=== PATIENT | female | born 1995 | race American Indian/Alaskan Native ===

== ENCOUNTER 2020-02-18 11:00 | Outpatient (CLI) | payer BC, OTHER ==
[2020-02-18 11:48] VITALS: BP 128/64
== END 2020-02-18 12:22 | disposition home or self-care (01) ==
LOC: TRG 11:00 → APU 11:02 → TRG 12:22
PROVIDERS: ATTEND Obstetrics & Gynecology
DX: O26.893 Other specified pregnancy related conditions, third trimester (principal); R20.0 Anesthesia of skin; Z3A.37 37 weeks gestation of pregnancy
CPT/HCPCS: 59025

== ENCOUNTER 2020-03-01 18:12 | Outpatient (CLI) | payer BC, OTHER ==
[2020-03-01 18:32] VITALS: BP 131/76
[2020-03-01] MEDS ORDERED: LACTATED RINGERS 1,000 ML ONE (19:07)
[2020-03-01] MEDS ORDERED: D5W/LACTATED RINGERS 1,000 ML IV SCH (20:00)
== END 2020-03-01 21:50 | disposition home or self-care (01) ==
LOC: TRG 18:12 → APU 18:13 → TRG 21:50
PROVIDERS: ATTEND Obstetrics & Gynecology
DX: O36.8130 Decreased fetal movements, third trimester, not applicable or unspecified (principal); O47.1 False labor at or after 37 completed weeks of gestation; Z3A.39 39 weeks gestation of pregnancy; Z87.891 Personal history of nicotine dependence
CPT/HCPCS: 99212; G0463; J7120; J7121

== ENCOUNTER 2020-03-02 01:04 | Inpatient (IN) | payer BC, OTHER, MEDICAID ==
[2020-03-02] MEDS ORDERED: LACTATED RINGERS 1,000 ML ONE (01:46)
[2020-03-02] MEDS ORDERED: ePHEDrine SULFATE 50 MG/1 ML INJ IV PRN ×2 (03:27→08:51)
[2020-03-02] MEDS ORDERED: LIDOCAINE (2%) 20 MG/1 ML VIAL 20 ML MDV INFILTRATI ONE (03:27)
[2020-03-02] MEDS ORDERED: MINERAL OIL 30 ML ORAL LIQD PO PRN (03:27)
[2020-03-02] MEDS ORDERED: BUTORPHANOL 2 MG/1 ML INJ IV PRN (03:27)
[2020-03-02] MEDS ORDERED: fentaNYL 100 MCG/2 ML INJ IV PRN (03:27)
[2020-03-02] MEDS ORDERED: TERBUTALINE 1 MG/1 ML INJ IVP PRN (03:27)
[2020-03-02] MEDS ORDERED: TERBUTALINE 1 MG/1 ML INJ SUB-Q PRN (03:27)
[2020-03-02] MEDS ORDERED: OXYTOCIN 20 UNIT/1000ML DRIP 20 UNITS/1,000 ML BAG IV SCH ×2 (04:00→17:00)
[2020-03-02] MEDS ORDERED: LACTATED RINGERS 1,000 ML IV SCH (04:00)
--- NOTE | 2020-03-02 05:23 | History and Physical Report ---
History of Present Illness Date of examination: 03/02/20 Date of admission: 03/02/20 03:27 Chief complaint: I'm in pain History of present illness: Pt is a 24 year old who presents for active labor at term and had cervical change from 1-3 prior to admission. records are available for review, but are incomplete. Her first visit with [facility] was at 33 weeks. Will treat for positive GBS. Per patient she has had no complications with this . Anticipate . Past History Past Medical History: no pertinent history Past Surgical History: no surgical history Social history: single - Obstetrical History Expected Date of Delivery: 03/07/20 Actual Gestation: 39 Week(s) 2 Day(s) : 2 Number of Living Children: 0 Medications and Allergies Allergies Allergy/AdvReac Type Severity Reaction Status Date / Time amoxicillin Allergy Rash Verified 06/06/15 15:38 Home Medications Medication Instructions Recorded Confirmed Last Taken Type Acetaminophen/Codeine [Tylenol #3] 1 tab PO Q6H PRN #14 tab 06/06/15 03/02/20 Unknown Rx Ondansetron [Zofran Odt] 4 mg PO Q6H #14 tab.rapdis 06/06/15 03/02/20 Unknown Rx Phenazopyridine [Pyridium] 200 mg PO BID #10 tab 06/06/15 03/02/20 Unknown Rx Sulfamethoxazole/Trimethoprim 1 each PO BID #14 tablet 06/06/15 03/02/20 Unknown Rx [Bactrim DS TAB] Active Meds: Active Medications Butorphanol Tartrate (Stadol) 1 mg IV Q2H PRN PRN Reason: Pain, Moderate(4-6) LABOR PAIN Ephedrine Sulfate (Ephedrine Sulfate) 10 mg IV Q2M PRN PRN Reason: Hypotension Fentanyl (Sublimaze) 100 mcg IV Q2H PRN PRN Reason: Pain,Severe (7-10) LABOR PAIN Oxytocin/Sodium Chloride (Pitocin/Ns 20 Unit/1000ml Drip) 20 units in 1,000 mls @ 125 mls/hr IV DIRECT SUKHJINDER Lactated Ringer's (Lactated Ringers) 1,000 mls @ 125 mls/hr IV DIRECT SUKHJINDER Vancomycin HCl (Vancomycin/Ns 1 Gm/250 Ml) 1 gm in 250 mls @ 167.007 mls/hr IV Q12H SUKHJINDER; Protocol Mineral Oil (Mineral Oil) 30 ml PO QHS PRN PRN Reason: Constipation Terbutaline Sulfate (Brethine) 0.25 mg SUB-Q ONCE PRN PRN Reason: Hyperstimulation/Hypertonicity Terbutaline Sulfate (Brethine) 0.25 mg IVP ONCE PRN PRN Reason: Hyperstimulation/Hypertonicity Review of Systems All systems: negative Genitourinary: pelvic pain, contractions - Vital Signs Vital signs: Vital Signs Pulse BP 104 H 126/69 03/02/20 01:08 03/02/20 01:08 Temp Pulse Resp BP Pulse Ox 104 H 126/69 03/02/20 01:08 03/02/20 01:08 - Physical Exam Breasts: Cardiovascular: Regular rate, Normal S1, Normal S2 Lungs: Positive: Clear to auscultation, Normal air movement Abdomen: Positive: normal appearance, soft, normal bowel sounds. Negative: distention, tenderness Genitourinary (Female): Positive: normal external genitalia, normal perenium Vulva: both: normal Vagina: Positive: normal moisture. Negative: discharge Cervix: Negative: lesion, discharge Uterus: Positive: enlarged (markedly ), normal contour Adnexa: both: normal Anus/Rectum: Positive: normal perianal skin, heme negative. Negative: rectal mass, hemorrhoids Extremities: Deep Tendon Reflex Grade: Normal +2 - Obstetrical FHR: auscultation normal Cervical Dilatation: 3 Cervical Effacement Percentage: 60 station: -2 Uterine Contraction Pattern: Regular Uterine Tone Measurement Phase: Contraction Uterine Contraction Intensity: Moderate Results Result Diagrams: 03/02/20 07:18 All other labs normal. Assessment and Plan IUP at 39 weeks in labor. Admit to L&D. AROM when able. Treat for GBS. Anticipate .
[2020-03-02] MEDS: VANCOMYCIN/NS 1 GM/250 ML 1 GM/250 ML BAG IV SCH ×2 (05:45→17:19)
[2020-03-02 07:50] LABS: Hematocrit 34.6 % (30.3-42.9); Hemoglobin 11.5 gm/dl (10.1-14.3); Mean Corpuscular HGB Conc 33 % (30-34); Mean Corpuscular Volume 85 fl (79-97); Platelet Count 261 K/mm3 (140-440); Red Blood Count 4.09 M/mm3 (3.65-5.03)
[2020-03-02] MEDS ORDERED: DEXMEDETOMIDINE 200 MCG/2 ML VIAL IV ONE ×2 (08:24→10:49)
[2020-03-02] MEDS ORDERED: NALOXONE 2 MG/2 ML INJ IV PRN (08:51)
--- NOTE | 2020-03-02 08:53 | Anesthesia Consultation ---
Anesthesia Consult and Med Hx Date of service: 03/02/20 - Airway Anesthetic Teeth Evaluation: Good ROM Head & Neck: Adequate Mental/Hyoid Distance: Adequate Mallampati Class: Class II Intubation Access Assessment: Good - Pulmonary Exam CTA: Yes - Cardiac Exam Cardiac Exam: RRR - Pre-Operative Health Status ASA Pre-Surgery Classification: ASA2, Emergency Proposed Anesthetic Plan: Epidural - Pulmonary Hx Asthma: No COPD: No Hx Pneumonia: No - Cardiovascular System Hx Hypertension: No - Central Nervous System Hx Seizures: No Hx Psychiatric Problems: No - Endocrine Hx Renal Disease: No Hx End Stage Renal Disease: No Hx Hypothyroidism: No Hx Hyperthyroidism: No - Hematic Hx Anemia: No Hx Sickle Cell Disease: No - Other Systems Hx Alcohol Use: Yes (NOT DURING )
--- NOTE | 2020-03-02 08:58 | Progress Note ---
Labor Epidural - Labor Epidural Start Time: 08:27 Stop Time: 08:39 Performed by:: VALENTINE COSTA Procedure: Patient is requesting a laboring epidural for laboring pain. Patient IDed, H&P reviewed, all questions and concerns were answered, and consent was signed. Timeout was performed at bedside. Patient in sitting position. Sterile prep and drape was performed. 3 ml of 1% lidocaine skin wheal at L[3]- L [4]. 18- gauge Touhy epidural needle was advanced to loss of resistance with air technique. Negative CSF negative blood. Epidural catheter advanced to [15] centimeters. [-] Aspiration [-] test dose. Sterile dressing applied. Patient tolerated procedure.
[2020-03-02] MEDS ORDERED: fentaNYL-BUPIV 2 MCG/ML-0.125% 200 MCG/100 ML BAG EPIDURAL SCH (09:00)
[2020-03-02] MEDS ORDERED: ACETAMINOPHEN 325 MG TAB PO ONE (13:00)
[2020-03-02] MEDS ORDERED: METOCLOPRAMIDE 10 MG/2 ML INJ ONE (13:50)
[2020-03-02] MEDS ORDERED: BICITRA ORAL LIQD 30ML ONE (13:50)
[2020-03-02] MEDS ORDERED: FAMOTIDINE 20 MG/2 ML INJ IV ONE ×2 (13:50→14:07)
[2020-03-02] MEDS ORDERED: BICITRA ORAL LIQD 30ML PO ONE (14:07)
[2020-03-02] MEDS ORDERED: METOCLOPRAMIDE 10 MG/2 ML INJ IV ONE (14:07)
--- NOTE | 2020-03-02 14:43 | Anesthesia Day of Surgery ---
Anesthesia Day of Surgery - Day of Surgery Patient Examined: Yes Patient H&P Reviewed: Yes Patient is NPO: Yes
[2020-03-02] MEDS ORDERED: LIDOCAINE 2%/EPINEPHRINE 1:200,000 VIAL (20 ML) INFILTRATI ONE (14:46)
[2020-03-02] MEDS ORDERED: diphenhydrAMINE 50 MG/ML VIAL ONE (15:00)
[2020-03-02] MEDS ORDERED: KETOROLAC 30 MG/1 ML INJ ONE (15:00)
[2020-03-02] MEDS ORDERED: dexAMETHasone 20 MG/5 ML VIAL ONE (15:00)
--- NOTE | 2020-03-02 15:00 | Event Note ---
Date: 03/02/20 Received call from nurse at 12:10 stating that patient had fever to 101 with membranes intact that spiked after receiving Vancomycin. Pt also complains of cough that is new in onset. Received second call from nurse that patient was having repetitive late decelerations in addition to increase in Temp to 102.3 Fetus now with tachycardia and late decelerations. Pt is 4 cm and remote from delivery. Intrauterine resuscitation attempted with no relief. Will now proceed with urgent for non reassuring fhts. In addition, will consult ID and change patient status to PUI due to fever of unknown origin and cough at term with no other obvious causes.
[2020-03-02] MEDS ORDERED: ONDANSETRON 4 MG/2 ML INJ ONE (15:04)
[2020-03-02] MEDS ORDERED: PHENYLEPHRINE/NS 1,000 MCG/10 ML SYRINGE (OR USE) IV ONE (15:04)
[2020-03-02] MEDS ORDERED: SODIUM CHLORIDE 0.9% IRR 1,500 ML BOTTLE IR ONE (15:30)
[2020-03-02] MEDS ORDERED: WATER FOR IRRIG STERILE 1,500 ML BOTTLE IR ONE (15:30)
--- NOTE | 2020-03-02 16:26 | Procedure Note ---
OB Delivery Note - Delivery Date of Delivery: 03/02/20 Surgeon: TARUN ARCHIBALD Estimated blood loss: 500cc - Section Preop diagnosis: nonreassuring FHR tracing Postop diagnosis: other (chorioamnionitis, meconium fluid) section procedure: primary low transverse Disposition: PACU Complications: none Narrative: see op report - A at 1 minute: 8 at 5 minutes: 9 Infant Gender: Female (3755 g 8pounds 5 ounces)
[2020-03-02] MEDS ORDERED: ONDANSETRON 4 MG/2 ML INJ IV PRN ×2 (16:32→16:55)
[2020-03-02] MEDS ORDERED: HYDROmorphone 1 MG/1 ML INJ IV PRN (16:32)
[2020-03-02] MEDS ORDERED: NALOXONE 0.4 MG/1 ML INJ IV PRN ×2 (16:32→16:55)
--- NOTE | 2020-03-02 16:32 | Post Anesthesia Evaluation ---
- Post Anesthesia Evaluation Patient Participated: Yes Airway Patent: Yes Stable Respiratory Function: Yes Nausea/Vomiting: No Temp > 96.8F: Yes Pain Manageable: Yes Adequeate Hydration: Yes Anesthesia Complications: No Block Receding Appropriately: Yes Patient on Ventilator: No
--- NOTE | 2020-03-02 16:35 | Operative Report ---
Operative Report Operative Report: Preoperative diagnosis: Intrauterine at 39.2 weeks 2. Non reassuring heart tones with tachycardia Postoperative diagnosis: Same with chorioamnionitis Procedure: Primary low transverse section Surgeon: Dr. Nadia John EBL: 500 Urine output: 200 mL IV fluids: 400 mL Findings: Viable female in the occiput posterior position Weight 8 lbs. 5 oz. 3682 g Apgars 8 and 9. Otherwise normal pelvic anatomy, Foul smelling amniotic fluid with meconium staining of membranes Specimens: placenta Complications: None Procedure: The patient was admitted to the OR with IV running and in place. She was properly identified as herself. She was given spinal anesthesia in the OR without difficulty. She was placed in the dorsal supine position with a leftward tilt. A Domínguez catheter was inserted. She was then prepped and draped in the normal sterile fashion. An Allis test was used to confirm adequate anesthesia. Once confirmed, the incision was made with the scalpel and carried to the underlying fascia using the scalpel and the Bovie. The fascia was incised in the midline and incision was extended bilaterally using the curved Marley scissors. The fascia was then dissected from the underlying rectus muscles in a series of sharp and blunt dissection using the Marley scissors. Muscles were in the in the midline sharply using Metzenbaum scissors and the peritoneum was entered into bluntly using the surgeon's fingers. A bladder blade was then placed into the incision to protect the bladder. Following this the bladder flap was created. Hysterotomy incision was then made in the scalpel. Upon uterine entry, the amniotic sac was ruptured for clear fluid. The infant was then delivered without difficulty.. His mouth and nose were suctioned on the field. The cord was clamped and cut and he was handed to the waiting NICU personnel. The uterus was then exteriorized and cleared of all clots and debris. The hysterotomy incision was then closed in a running locked fashion using 0 Vicryl. The abdomen was then copiously irrigated with warm normal saline. Attention was turned the the fallopian tubes. Each tube was identified and followed out the the fimbriated end. Each tube was grasped in the midportion and ligated in the [place] style Tubal ligation. Following this the uterus was replaced into the abdominal cavity. At this point the muscles were reapproximated in the midline using individual sutures of 0 Vicryl. Following this the fascia was closed in a running fashion using 0 Vicryl. Tissue was then copiously irrigated. Retention sutures were placed in the subcutaneous fat tissue Skin was closed in a running fashion using 3-0 Monocryl. The sponge lap needle and instrument counts were correct 2. The patient tolerated the procedure well. She was taken to recovery in stable condition.
[2020-03-02] MEDS ORDERED: KETOROLAC 30 MG/1 ML INJ IV PRN (16:55)
[2020-03-02] MEDS ORDERED: LANOLIN/ZINC/DIMETHICONE (LANSINOH) 7 GM TP PRN (16:55)
[2020-03-02] MEDS ORDERED: WITCH HAZEL/ GLYCERIN PAD TP PRN (16:55)
[2020-03-02] MEDS ORDERED: ACETAMINOPHEN 325 MG TAB PO PRN (16:55)
[2020-03-02] MEDS ORDERED: D5W/LACTATED RINGERS 1,000 ML IV SCH (17:00)
[2020-03-02] MEDS: MORPHINE 4 MG/1 ML INJ IV PRN (22:02)
[2020-03-03] MEDS: VANCOMYCIN/NS 1 GM/250 ML 1 GM/250 ML BAG IV SCH (05:15)
[2020-03-03 05:56] LABS: Hematocrit 31.4 % (30.3-42.9); Hemoglobin 10.3 gm/dl (10.1-14.3)
[2020-03-03] MEDS: MORPHINE 4 MG/1 ML INJ IV PRN (05:57)
--- NOTE | 2020-03-03 08:50 | Progress Note ---
Assessment and Plan A: POD#1 s/p primary at term, Chosrioamnionitis, Fever, PUI, Morbid Obesity P: COVID-19 test to be collected today. Maintain isolation until results reviewed. Routine postoperative care. Subjective - Subjective Date of service: 03/03/20 Principal diagnosis: s/p primary , chorioamnionitits, fever, PUI, Morbid Obesity Interval history: Pt reports abdominal pain overnight, but otherwise has no complaints. She denies fever, chest pain or dyspnea. Patient reports: appetite normal, voiding normally, ambulating normally, no flatus, no bowel movement : doing well Objective - Vital Signs Latest vital signs: Vital Signs Temp Pulse Resp BP BP Pulse Ox 03/03/20 07:26 99.2 F 129 H 18 125/76 97 03/03/20 05:57 30 H 03/03/20 01:24 98.9 F 124 H 30 H 129/74 96 03/03/20 01:04 28 H 03/02/20 22:02 30 H 03/02/20 18:40 99.7 F H 107 H 34 H 137/67 94 03/02/20 17:54 99.4 F 105 H 30 H 129/60 96 03/02/20 17:45 104 H 28 H 128/61 97 03/02/20 17:30 108 H 32 H 130/54 94 03/02/20 17:17 100.4 F H 03/02/20 17:10 106 H 35 H 133/60 94 03/02/20 17:00 105 H 37 H 136/61 97 03/02/20 16:54 130/66 03/02/20 16:50 100.1 F H 105 H 36 H 97 03/02/20 16:40 109 H 30 H 124/58 98 03/02/20 16:30 111 H 35 H 119/61 99 03/02/20 16:25 99.6 F 115 H 30 H 101/62 99 03/02/20 14:58 127 H 119/56 95 03/02/20 14:53 122 H 95 03/02/20 14:48 131 H 95 03/02/20 14:43 121 H 95 03/02/20 14:38 121 H 95 03/02/20 14:33 119 H 96 03/02/20 14:28 125 H 97 03/02/20 14:25 99 F 05 14:23 120 H 98 05 14:19 109 H 112/57 05 14:18 111 H 100 03/02/20 14:13 108 H 100 03/02/20 14:08 111 H 100 03/02/20 14:03 111 H 100 03/02/20 13:58 111 H 100 03/02/20 13:53 116 H 100 03/02/20 13:48 110 H 100 03/02/20 13:43 125 H 100 05 13:40 121 H 122/74 03/02/20 13:38 125 H 100 03/02/20 13:32 114 H 100 03/02/20 13:27 116 H 99 03/02/20 13:22 115 H 99 03/02/20 13:17 124 H 96 03/02/20 13:13 140 H 94 03/02/20 13:12 140 H 95 03/02/20 13:10 102.5 F H 22 95 03/02/20 13:07 140 H 94 03/02/20 13:02 136 H 94 03/02/20 13:01 134 H 94 03/02/20 12:59 134 H 114/56 03/02/20 12:57 136 H 95 03/02/20 12:56 135 H 94 03/02/20 12:52 135 H 95 03/02/20 12:50 133 H 94 03/02/20 12:47 132 H 95 03/02/20 12:42 126 H 96 03/02/20 12:37 127 H 96 03/02/20 12:32 124 H 96 03/02/20 12:27 121 H 97 05 12:22 124 H 100 03/02/20 12:17 127 H 98 05 12:12 121 H 97 05 12:11 121 H 123/56 05 12:07 126 H 98 03/02/20 12:02 121 H 98 05 11:57 119 H 98 05 11:55 118 H 131/66 05 11:52 121 H 99 05 11:47 117 H 100 03/02/20 11:42 129 H 98 05 11:41 136 H 113/52 051720 11:37 113 H 97 0520 11:32 110 H 98 0520 11:29 114 H 130/67 0520 11:27 101.2 F H 114 H 20 130/67 99 0520 11:25 107 H 129/69 0520 11:22 108 H 99 0520 11:17 107 H 99 05 11:12 117 H 99 05 11:10 111 H 164/98 05 11:07 108 H 99 03/02/20 11:02 119 H 99 05 10:57 126 H 99 03/02/20 10:55 104 H 136/85 03/02/20 10:52 108 H 99 03/02/20 10:47 111 H 99 03/02/20 10:42 107 H 99 03/02/20 10:40 105 H 140/77 05 10:37 110 H 99 03/02/20 10:32 104 H 98 05 10:27 101 H 98 03/02/20 10:25 101 H 137/78 05 10:22 103 H 98 05 10:17 112 H 99 03/02/20 10:12 99 H 100 05 10:11 96 H 114/56 03/02/20 10:07 98 H 100 05 10:02 95 H 100 0520 09:57 98 H 100 05 09:55 100 H 118/59 05 09:52 97 H 99 0520 09:47 96 H 99 0520 09:42 94 H 100 0520 09:41 97 H 112/52 0520 09:37 104 H 97 0520 09:34 112 H 94 0520 09:32 115 H 95 0520 09:27 113 H 95 0520 09:26 111 H 110/51 0520 09:22 111 H 96 0520 09:17 112 H 96 0520 09:12 109 H 96 05 09:09 110 H 112/56 05 09:07 111 H 96 03/02/20 09:06 109 H 114/57 03/02/20 09:03 106 H 117/55 03/02/20 09:02 108 H 97 03/02/20 09:00 113 H 119/56 03/02/20 08:57 114 H 115/57 97 03/02/20 08:54 111 H 118/56 03/02/20 08:52 117 H 97 03/02/20 08:51 115 H 119/55 Intake and Output 03/02/20 03/03/20 03/03/20 22:59 06:59 14:59 Intake Total 900 620 Output Total 525 900 Balance 375 -280 Intake: IV 900 VANCOMYCIN/NS 1 GM/250 ML 250 1 gm In 250 ml @ 167.007 mls/hr IV Q12H SUKHJINDER Rx#: [id number] Oral 620 Output: Urine 525 900 Indwelling 175 Indwelling Catheter 175 900 Other: Total, Intake Amount 620 Total, Output Amount 175 900 # Bowel Movements 0 Estimated Blood Loss 500 - Exam Breasts: Present: deferred Abdomen: Present: soft (obese ), distention (moderate ) Uterus: Present: fundal height at umbilicus Extremities: Present: edema (trace) Incision: Present: dressed - Labs Labs: Abnormal lab results 03/02/20 03/02/20 03/02/20 Range/Units 12:24 19:23 19:23 D-Dimer 3948.57 H (0-234) ng/mlDDU Glucose 59 L (65-100) mg/dL Lactate Dehydrogenase 213 H (91-180) units/L C-Reactive Protein 4.10 H (0.00-1.30) mg/dL
[2020-03-03] MEDS: FERROUS SULFATE 325 MG TAB PO SCH (09:37)
[2020-03-03] MEDS: PRENATAL VIT27-FE FUMARATE-FOLIC ACID VIT TAB PO SCH (09:37)
[2020-03-03] MEDS: oxyCODONE /ACETAMINOPHEN 5-325MG TAB PO PRN ×2 (12:23→21:21)
--- NOTE | 2020-03-03 15:52 | Event Note ---
Date: 03/03/20 Pt's COVID-19 test has returned negative. Contact and droplet isolation removed.
[2020-03-03] MEDS: IBUPROFEN 800 MG TAB PO PRN ×2 (17:37→23:16)
[2020-03-03] MEDS: SIMETHICONE 80 MG CHEW TAB PO PRN (19:46)
[2020-03-04] MEDS: oxyCODONE /ACETAMINOPHEN 5-325MG TAB PO PRN ×3 (04:27→20:12)
--- NOTE | 2020-03-04 08:08 | Progress Note ---
Assessment and Plan - Patient Problems (1) Chorioamnionitis Current Visit: Yes Status: Acute Plan to address problem: Patient continues to demonstrate clinical improvement will advance diet as tolerated Consider discharge home tomorrow if remains afebrile (2) delivery delivered Current Visit: Yes Status: Acute Subjective - Subjective Date of service: 03/04/20 Principal diagnosis: s/p primary , chorioamnionitits, fever, PUI, Morbid Obesity Interval history: Last reported temperature spike of 99.9 yesterday around noon. The patient states she has been tolerating clear diet without complication. She currently denies flatus and has not been advanced to regular diet as of yet. She is voiding spontaneously. Patient reports: voiding normally, pain well controlled, no flatus : doing well Objective - Vital Signs Latest vital signs: Vital Signs Temp Pulse Resp BP Pulse Ox 03/04/20 05:27 18 03/04/20 04:27 18 03/04/20 00:16 18 03/04/20 00:00 98.6 F 70 18 104/78 03/03/20 23:16 18 03/03/20 22:21 18 03/03/20 21:21 18 03/03/20 16:20 99 F 90 18 121/66 96 03/03/20 12:23 35 H 03/03/20 12:10 99.9 F H 129 H 35 H 120/52 95 Intake and Output 03/03/20 03/04/20 03/04/20 22:59 06:59 14:59 Intake Total 840 300 Balance 840 300 Intake: Oral 540 Intake, Free Water 300 300 Other: Total, Intake Amount 300 # Voids Void 1 - Exam Abdomen: Present: normal appearance, soft Incision: Present: dressed
[2020-03-04] MEDS: PRENATAL VIT27-FE FUMARATE-FOLIC ACID VIT TAB PO SCH (09:37)
[2020-03-04] MEDS: FERROUS SULFATE 325 MG TAB PO SCH (09:37)
[2020-03-04] MEDS: MAGNESIUM HYDROXIDE (MOM) ORAL LIQD UDC PO PRN (12:32)
[2020-03-04] MEDS: SIMETHICONE 80 MG CHEW TAB PO PRN (16:14)
[2020-03-04] MEDS: IBUPROFEN 800 MG TAB PO PRN (16:14)
[2020-03-05] MEDS: IBUPROFEN 800 MG TAB PO PRN ×2 (00:07→08:04)
[2020-03-05] MEDS: MAGNESIUM HYDROXIDE (MOM) ORAL LIQD UDC PO PRN (00:15)
[2020-03-05] MEDS: oxyCODONE /ACETAMINOPHEN 5-325MG TAB PO PRN (05:25)
--- NOTE | 2020-03-05 08:34 | Progress Note ---
Assessment and Plan A: POD3 s/p pLTCS and chorio Tachycardia H&H stable Afebrile presently P: EKG today Discharge to home upon normal EKG with close clinical f/u Subjective - Subjective Date of service: 03/05/20 Principal diagnosis: s/p primary , chorioamnionitis, Morbid Obesity Interval history: POD3 s/p LTCS. Persistent tachycardia. Afebrile presently. Patient reports: appetite normal, voiding normally, pain well controlled, flatus, bowel movement, ambulating normally Independence: doing well Objective - Vital Signs Latest vital signs: Vital Signs Temp Pulse Resp BP Pulse Ox 03/05/20 08:04 20 03/05/20 00:10 98.2 F 112 H 20 137/78 98 03/04/20 16:14 18 03/04/20 15:41 98.2 F 126 H 20 126/60 95 03/04/20 12:32 22 03/04/20 08:38 98.1 F 111 H 20 132/67 99 Intake and Output 03/04/20 03/05/20 03/05/20 23:59 07:59 15:59 Intake Total 200 240 Output Total 1 Balance 200 239 Intake: Oral 200 240 Output: Stool 1 Other: Total, Intake Amount 200 240 Total, Output Amount 1 # Voids Void 1 1 - Exam Lungs: Present: Normal air movement Abdomen: Present: soft. Absent: distention Uterus: Present: firm, fundal height below umbilicus. Absent: bogginess Extremities: Present: normal Incision: Present: normal, dry, intact
--- NOTE | 2020-03-05 08:38 | Discharge Summary ---
Providers - Providers Date of Admission: 03/02/20 03:27 Date of discharge: 03/05/20 Attending physician: PRAKASH MILES 03/02/20 17:06 Consult to Physician [CONS] Stat Comment: Consulting Provider: MIGUELINA KEEN Physician Instructions: Reason For Exam: fever of unknown origin, PUI Primary care physician: PRAKASH MILES Hospitalization Reason for admission: active labor, IUP at term Delivery: Procedure: primary low transverse Episiotomy: none Laceration: none Incision: normal, dry, intact Other procedures: none complications: other (chorioamnionitis, tachycardia) Discharge diagnosis: IUP at term delivered [place] baby: female Hospital course: Pt was admitted for active labor. She developed a fever and NRFHT. She underwent a primary LTCS. COVID test was negative. Persistent tachycardia with otherwise normal EKG. She was treated for chorioamnionitis and was afebrile for 48 hours before discharge. Condition at discharge: Good Disposition: DC-01 TO HOME OR SELFCARE Plan - Discharge Medications Prescriptions: Ibuprofen [Motrin] 800 mg PO Q8HR PRN #30 tablet PRN Reason: Pain, Moderate (4-6) oxyCODONE /ACETAMINOPHEN [Percocet 5/325] 1 tab PO Q6HR PRN #40 tablet PRN Reason: Pain - Provider Discharge Summary Activity: routine, no sex for 6 weeks, no heavy lifting 4 weeks, no strenuous exercise Diet: routine Instructions: routine Additional instructions: [] Smoking cessation referral if applicable(refer to patient education folder for contact #) [] Refer to [facility] Booklet Call your doctor immediately for: * Fever > 100.5 * Heavy vaginal bleeding ( >1 pad per hour) * Severe persistent headache * Shortness of breath * Reddened, hot, painful area to leg or breast * Drainage or odor from incision. * Keep incision clean and dry at all times and follow doctor's instructions regarding bathing/showering - Follow up plan Follow up: АНДРЕЙ SEGURA CNM [Advanced Practice Nurse] - 14 Days (Please call [facility] to schedule appointment.)
[2020-03-05 09:54] VITALS: BP 122/55
[2020-03-05] MEDS: PRENATAL VIT27-FE FUMARATE-FOLIC ACID VIT TAB PO SCH (09:54)
[2020-03-05] MEDS: FERROUS SULFATE 325 MG TAB PO SCH (09:54)
== END 2020-03-05 14:15 | disposition home or self-care (01) | DRG 786 ==
LOC: TRG 01:04 → APU 01:05 → LD 03:27 → TRG 03:27 → OB 19:39
PROVIDERS: ADMIT Obstetrics & Gynecology; ATTEND Obstetrics & Gynecology
PROC: 10D00Z1 Extraction of Products of Conception, Low, Open Approach (ICD-10-PCS; principal; 2020-03-02)
DX: O76 Abnormality in fetal heart rate and rhythm complicating labor and delivery (principal); O41.1230 Chorioamnionitis, third trimester, not applicable or unspecified; O75.0 Maternal distress during labor and delivery; O77.0 Labor and delivery complicated by meconium in amniotic fluid; O99.214 Obesity complicating childbirth; E66.01 Morbid (severe) obesity due to excess calories; Z3A.39 39 weeks gestation of pregnancy; Z37.0 Single live birth; Z88.1 Allergy status to other antibiotic agents; Z03.818 Encounter for observation for suspected exposure to other biological agents ruled out
CPT/HCPCS: 36415; 82728; 82947; 83615; 84145; 85014; 85018; 85027; 85379; 86140; 86592; 86850; 86900; 86901; 88307; 93005; G0378; J1100; J1170; J1200; J1885; J2270; J2370; J2405; J2590; J2765; J3010; J3105; J3370; J3490; J7120; J7121; Q0177; U0003